=== PATIENT | female | born 1990 | race American Indian/Alaskan Native ===

== ENCOUNTER 2018-02-20 23:06 | Emergency (ER) | payer SELFPAY ==
[2018-02-20 23:54] VITALS: BP 146/95
[2018-02-20] MEDS ORDERED: DUONEB *Not for PRN Use IH ONE (23:54)
[2018-02-20] MEDS ORDERED: PROVENTIL IH ONE (23:54)
[2018-02-21] MEDS ORDERED: TYLENOL PO ONE (02:05)
[2018-02-21] MEDS ORDERED: ZOFRAN ODT PO ONE (02:05)
--- NOTE | 2018-02-21 02:11 | Emergency Department Report ---
ED Chest Pain HPI - General Chief Complaint: Adult Asthma Stated Complaint: ASTHMA Time Seen by Provider: 02/21/18 01:56 Source: patient Mode of arrival: Ambulatory Limitations: No Limitations - History of Present Illness Initial Comments: CC: "My friends raised me from the ." HPI: Ms. Khan is 27 yo female with hx of asthma and drug abuse. According to Lucille, "Someone gave me some bad stuff." She normally snorts cocaine. However, she realized that she snorted heroin. She passed out. Her friends put her in a cold bath tub to revived her. She awakened in the tub. She now has dyspnea, chest pain and abdominal pain. She is also hungry. MIld nondescript pain in chest pain and abdomen. MD Complaint: chest pain -: Gradual, hour(s) (several) - Related Data Home Medications Medication Instructions Recorded Confirmed Last Taken Ibuprofen [Motrin] 800 mg PO Q8HR PRN 08/31/15 08/31/15 Unknown Previous Rx's Medication Instructions Recorded Last Taken Type Vit/Iron Fum/Folic AC 1 each PO QDAY #90 tablet 01/25/15 1 Day Ago Rx [ Vitamin Tablet] ~03/02/15 Labetalol [Normodyne TAB] 100 mg PO BID #60 tablet 09/02/15 Unknown Rx traMADol [Ultram] 50 mg PO Q6HR PRN #14 tablet 09/02/15 Unknown Rx Doxycycline Hyclate [Doxycycline 100 mg PO Q12HR #20 tab 03/31/16 Unknown Rx Hyclate TAB] Oxycodone HCl/Acetaminophen 1 each PO Q6HR PRN #20 tablet 03/31/16 Unknown Rx [Percocet 7.5/325 mg] Sulfamethoxazole/Trimethoprim 1 each PO BID #20 tablet 03/31/16 Unknown Rx [Bactrim DS TAB] Allergies Allergy/AdvReac Type Severity Reaction Status Date / Time Penicillins Allergy Angioedema Verified 04/06/15 20:55 Heart Score - HEART Score History: Slightly suspicious EKG: Normal Age: < 45 Risk factors: No known risk factors Troponin: < normal limit HEART Score: 0 ED Review of Systems ROS: Stated complaint: ASTHMA Other details as noted in HPI Comment: All other systems reviewed and negative Constitutional: denies: fever, malaise Respiratory: denies: cough Cardiovascular: chest pain ED Past Medical Hx - Past Medical History Previous Medical History?: Yes Hx Hypertension: Yes Hx Diabetes: No Hx Deep Vein Thrombosis: No Hx Renal Disease: Yes (kidnesy stones last ) Hx Sickle Cell Disease: No Hx Seizures: No Hx Asthma: Yes Hx HIV: No - Surgical History Past Surgical History?: Yes Additional Surgical History: 08/19/2015 - Social History Smoking Status: Current Every Day Smoker Substance Use Type: Alcohol, Cocaine, Other (ectasy) - Medications Home Medications: Home Medications Medication Instructions Recorded Confirmed Last Taken Type Vit/Iron Fum/Folic AC 1 each PO QDAY #90 tablet 01/25/15 08/31/15 1 Day Ago Rx [ Vitamin Tablet] ~03/02/15 Ibuprofen [Motrin] 800 mg PO Q8HR PRN 08/31/15 08/31/15 Unknown History Labetalol [Normodyne TAB] 100 mg PO BID #60 tablet 09/02/15 Unknown Rx traMADol [Ultram] 50 mg PO Q6HR PRN #14 tablet 09/02/15 Unknown Rx Doxycycline Hyclate [Doxycycline 100 mg PO Q12HR #20 tab 03/31/16 Unknown Rx Hyclate TAB] Oxycodone HCl/Acetaminophen 1 each PO Q6HR PRN #20 tablet 03/31/16 Unknown Rx [Percocet 7.5/325 mg] Sulfamethoxazole/Trimethoprim 1 each PO BID #20 tablet 03/31/16 Unknown Rx [Bactrim DS TAB] ED Physical Exam - General Limitations: No Limitations General appearance: alert, in no apparent distress - Head Head exam: Present: atraumatic, normocephalic - Eye Eye exam: Present: normal appearance - ENT ENT exam: Present: mucous membranes moist - Neck Neck exam: Present: normal inspection. Absent: tenderness, meningismus - Respiratory Respiratory exam: Present: normal lung sounds bilaterally. Absent: respiratory distress, wheezes, rales, rhonchi - Cardiovascular Cardiovascular Exam: Present: regular rate, normal rhythm, normal heart sounds. Absent: systolic murmur, diastolic murmur, rubs, gallop - GI/Abdominal GI/Abdominal exam: Present: soft, normal bowel sounds. Absent: distended, tenderness, guarding, rebound - Extremities Exam Extremities exam: Present: normal inspection - Back Exam Back exam: Present: normal inspection - Neurological Exam Neurological exam: Present: alert, oriented X3 - Psychiatric Psychiatric exam: Present: normal affect, normal mood - Skin Skin exam: Present: warm, dry, intact, normal color. Absent: rash ED Course Vital Signs 02/20/18 23:50 Temperature 98.5 F Pulse Rate 110 H Respiratory 20 Rate Blood Pressure 146/95 O2 Sat by Pulse 99 Oximetry ED Medical Decision Making - EKG Data -: EKG Interpreted by Me EKG shows normal: sinus rhythm, axis, intervals, QRS complexes, ST-T waves Rate: normal - EKG Data Interpretation: normal EKG 02/21/18 05:20 NSR nl rate nl axis nl intervals no ST-T signs of ischemia no ST elevation rate 65 beats a minute - Radiology Data Radiology results: report reviewed No infiltrate no pneumothorax and normal mediastinum - Medical Decision Making Ms. Khan presents after unintentional drug overdose of heroin. She was quite frightened after the ordeal. She normally parties with drugs on the weekend, mostly alcohol, ecstasy and cocaine. I strongly urged her to quit the use of all drugs. She presents with chest pain shortness of breath. She was observed in the ED on shelter monitor for several hours without any cardiac events. Chest x-ray EKG both normal. PERC Negative for PE Critical care attestation.: If time is entered above; I have spent that time in minutes in the direct care of this critically ill patient, excluding procedure time. ED Disposition Clinical Impression: Accidental drug overdose Disposition: [id number] TO HOME OR SELFCARE Is pt being admited?: No Does the pt Need Aspirin: No Condition: Stable Instructions: Polysubstance Abuse (ED) Time of Disposition: 05:23
--- NOTE | 2018-02-21 02:33 | XRay Report ---
FINAL REPORT EXAM: XR CHEST ROUTINE 2V HISTORY: chest pain COMPARISON: None available. FINDINGS:: Frontal and lateral views of the chest obtained. Cardiac silhouette is within normal limits. No focal consolidation or effusion. No pneumothorax. Visualized bony thorax is grossly intact. IMPRESSION:: No acute findings.
== END 2018-02-21 05:00 | disposition home or self-care (01) ==
LOC: ED 23:06
DX: R06.00 Dyspnea, unspecified (principal); R07.9 Chest pain, unspecified; R10.9 Unspecified abdominal pain; T40.1X1A Poisoning by heroin, accidental (unintentional), initial encounter; I10 Essential (primary) hypertension; J45.909 Unspecified asthma, uncomplicated; F17.200 Nicotine dependence, unspecified, uncomplicated; F14.10 Cocaine abuse, uncomplicated; Z88.0 Allergy status to penicillin; Y92.89 Other specified places as the place of occurrence of the external cause
CPT/HCPCS: 71046; 93005; 93010; 99283; Q0162

== ENCOUNTER 2020-03-14 11:40 | Outpatient (CLI) | payer MEDICAID ==
[2020-03-14 12:10] VITALS: BP 107/61
[2020-03-14] MEDS ORDERED: LACTATED RINGERS 500 ML IV ONE (12:30)
[2020-03-14 13:40] LABS: Bacteria,Urine 1+ /HPF (Negative); Bilirubin,Urine NEG (Negative); Blood,Urine NEG (Negative); Color,Urine Yellow (Yellow); Mucus,Urine FEW /HPF; Protein,Urine <15 mg/dL mg/dL (Negative); Urobilinogen,Urine < 2.0 mg/dL (<2.0)
[2020-03-14] MEDS ORDERED: FLUCONAZOLE 100 MG TAB ONE (13:51)
[2020-03-15] MEDS ORDERED: FLUCONAZOLE 100 MG TAB PO SCH (10:00)
== END 2020-03-14 14:30 | disposition home or self-care (01) ==
LOC: TRG 11:40 → APU 11:41 → TRG 14:30
PROVIDERS: ATTEND Obstetrics & Gynecology
DX: O26.893 Other specified pregnancy related conditions, third trimester (principal); R10.30 Lower abdominal pain, unspecified; M54.9 Dorsalgia, unspecified; L29.9 Pruritus, unspecified; O47.1 False labor at or after 37 completed weeks of gestation; Z3A.37 37 weeks gestation of pregnancy
CPT/HCPCS: 59025; 81001; 87086; J7120; 96360